=== PATIENT | female | born 2000 | race Caucasian/White ===

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

== ENCOUNTER 2019-02-14 11:06 | Outpatient (RCR) | payer BC, OTHER | END 2019-05-15 | disposition home or self-care (01) | LOC: LAB 11:06 | PROVIDERS: ATTEND Registered Nurse | DX: R10.13 Epigastric pain (principal); K21.9 Gastro-esophageal reflux disease without esophagitis | CPT/HCPCS: 87338 ==